=== PATIENT | male | born 1985 | race Caucasian/White ===

== ENCOUNTER 2019-07-14 17:29 | Emergency (ER) | payer MEDICAID ==
[~2019-07-14] VITALS: Ht 172.7 cm; Wt 63.9 kg
[2019-07-14 17:59] VITALS: BP 124/82
== END 2019-07-14 21:46 | disposition left against medical advice (07) ==
LOC: ER 17:30
DX: G43.909 Migraine, unspecified, not intractable, without status migrainosus (principal); Z53.21 Procedure and treatment not carried out due to patient leaving prior to being seen by health care provider

== ENCOUNTER 2020-02-14 22:05 | Emergency (ER) | payer MEDICAID ==
[~2020-02-14] VITALS: Ht 172.7 cm; Wt 68.0 kg
[2020-02-14] MEDS ORDERED: HYDROcodone/acetaminophen 5mg/325mg tablet PO ONE (22:35)
[2020-02-14] MEDS ORDERED: ketorolac trometh inj. 60 MG/2 ML VIAL IM ONE (22:35)
[2020-02-14] MEDS ORDERED: IBUP-1984 PO (22:35)
[2020-02-14] MEDS ORDERED: ACET-3067 PO (22:35)
[2020-02-14] MEDS ORDERED: diazepam 5mg tablet PO ONE (22:35)
[2020-02-14] MEDS ORDERED: CYCL-1 PO (22:35)
[2020-02-14 22:48] VITALS: BP 117/91
== END 2020-02-14 22:49 | disposition home or self-care (01) ==
LOC: ER 22:05
DX: M54.5 Low back pain (principal); F12.90 Cannabis use, unspecified, uncomplicated; F17.200 Nicotine dependence, unspecified, uncomplicated; Z79.899 Other long term (current) drug therapy
CPT/HCPCS: 96372; 99283; J1885

== ENCOUNTER 2020-03-19 14:01 | Emergency (ER) | payer MEDICAID ==
[~2020-03-19] VITALS: Ht 172.7 cm; Wt 77.3 kg
[~2020-03-19 14:01] MED LIST: CYCL-1 PO
--- NOTE | 2020-03-19 14:30 | NUR ---
PT WAS SCREENED/ASSESSED BY PROVIDER Arya STRICKLAND AND PT TO BE PLACED IN TENT 1.
[2020-03-19 15:02] LABS: BASOPHILS % (AUTO) 0.5 % (0-1); EOSINOPHILS # (AUTO) 0.1 X10'3 (0-0.9); EOSINOPHILS % (AUTO) 0.9 % (0-6); HEMATOCRIT 46.3 % (42.0-52.0); HEMOGLOBIN 15.3 g/dl (14.0-17.9); LYMPHOCYTES # (AUTO) 1.7 X10'3 (1.1-4.8); LYMPHOCYTES % (AUTO) 19.6 % (21-51); MEAN CORPUSCULAR HEMOGLOBIN 29.2 PG (27.0-31.0); MEAN CORPUSCULAR HGB CONC 32.9 g/dL (33.0-36.5); MEAN CORPUSCULAR VOLUME 88.5 FL (78-98); MEAN PLATELET VOLUME 8.3 FL (7.4-10.4); MONOCYTES # (AUTO) 0.6 X10'3 (0-0.9); MONOCYTES % (AUTO) 7.5 % (2-12); NEUTROPHILS # (AUTO) 6.1 X10'3 (1.8-7.7); NEUTROPHILS % (AUTO) 71.5 % (42-75); PLATELET COUNT 318 X10'3 (140-440); RED BLOOD COUNT 5.23 X10'6 (4.70-6.10); RED CELL DISTRIBUTION WIDTH 13.9 % (11.5-14.5); WHITE BLOOD COUNT 8.5 X10'3 (4.5-11.0)
[2020-03-19 15:15] LABS: ALANINE AMINOTRANSFERASE 13 U/L (12-78); ALBUMIN/GLOBULIN RATIO 1.1 (1.1-1.5); ALKALINE PHOSPHATASE 60 IU/L (46-116); ANION GAP 8 (8-16); ASPARTATE AMINO TRANSFERASE 10 U/L (10-37); BILIRUBIN,TOTAL 0.4 MG/DL (0.1-1.0); BLOOD UREA NITROGEN 10 MG/DL (7-18); BUN/CREATININE RATIO 11.5 (5.4-32.0); CHLORIDE 105 MMOL/L (99-107); CREATININE 0.87 MG/DL (0.60-1.10); GLUCOSE 106 MG/DL (70-104); POTASSIUM 3.8 MMOL/L (3.5-5.1); SODIUM 139 MMOL/L (135-145); TOTAL CARBON DIOXIDE 26.5 MMOL/L (24-32); TOTAL PROTEIN 7.6 G/DL (6.4-8.2); eGFR > 90 ML/MIN
[2020-03-19 15:45] VITALS: BP 113/83
[2020-03-19] MEDS ORDERED: morphine 4 MG/ML inj SYRINge IV ONE (16:00)
== END 2020-03-19 16:21 | disposition home or self-care (01) ==
LOC: ER 14:01
DX: S22.32XA Fracture of one rib, left side, initial encounter for closed fracture (principal); Z20.828 Contact with and (suspected) exposure to other viral communicable diseases; J06.9 Acute upper respiratory infection, unspecified; R11.2 Nausea with vomiting, unspecified; B97.89 Other viral agents as the cause of diseases classified elsewhere; F12.90 Cannabis use, unspecified, uncomplicated; Z79.899 Other long term (current) drug therapy; X58.XXXA Exposure to other specified factors, initial encounter; Y93.89 Activity, other specified; Y92.89 Other specified places as the place of occurrence of the external cause; Y99.8 Other external cause status
CPT/HCPCS: 36415; 71045; 80053; 84484; 85025; 87635; 93005; 99285

== ENCOUNTER 2020-06-20 03:56 | Inpatient (IN) | payer MEDICAID ==
[~2020-06-20] VITALS: Ht 175.3 cm; Wt 78.0 kg
[2020-06-20 04:29] LABS: BASOPHILS # (AUTO) 0.1 X10'3 (0-0.2); BASOPHILS % (AUTO) 0.7 % (0-1); EOSINOPHILS # (AUTO) 0.3 X10'3 (0-0.9); EOSINOPHILS % (AUTO) 2.8 % (0-6); HEMATOCRIT 46.5 % (42.0-52.0); HEMOGLOBIN 15.4 g/dl (14.0-17.9); LYMPHOCYTES # (AUTO) 2.5 X10'3 (1.1-4.8); LYMPHOCYTES % (AUTO) 25.4 % (21-51); MEAN CORPUSCULAR HEMOGLOBIN 28.6 PG (27.0-31.0); MEAN CORPUSCULAR HGB CONC 33.1 g/dL (33.0-36.5); MEAN CORPUSCULAR VOLUME 86.3 FL (78-98); MONOCYTES # (AUTO) 0.8 X10'3 (0-0.9); MONOCYTES % (AUTO) 8.1 % (2-12); NEUTROPHILS # (AUTO) 6.1 X10'3 (1.8-7.7); PLATELET COUNT 260 X10'3 (140-440); RED BLOOD COUNT 5.39 X10'6 (4.70-6.10); RED CELL DISTRIBUTION WIDTH 13.5 % (11.5-14.5); WHITE BLOOD COUNT 9.7 X10'3 (4.5-11.0)
[2020-06-20 04:44] LABS: ALANINE AMINOTRANSFERASE 18 U/L (12-78); ALBUMIN 3.9 G/DL (3.4-5.0); ALBUMIN/GLOBULIN RATIO 1.1 (1.1-1.5); ALKALINE PHOSPHATASE 68 IU/L (46-116); ANION GAP 3 (8-16); ASPARTATE AMINO TRANSFERASE 16 U/L (10-37); BILIRUBIN,TOTAL 0.2 MG/DL (0.1-1.0); BLOOD UREA NITROGEN 14 MG/DL (7-18); BUN/CREATININE RATIO 12.4 (5.4-32.0); CALCIUM 8.9 MG/DL (8.5-10.1); CHLORIDE 105 MMOL/L (99-107); CREATININE 1.13 MG/DL (0.60-1.10); GLUCOSE 117 MG/DL (70-104); POTASSIUM 4.1 MMOL/L (3.5-5.1); SODIUM 139 MMOL/L (135-145); TOTAL CARBON DIOXIDE 30.6 MMOL/L (24-32); TOTAL PROTEIN 7.3 G/DL (6.4-8.2); eGFR 73 ML/MIN
[2020-06-20] MEDS ORDERED: normal saline 1000ML IV soln IVB ONE ×2 (04:55→05:40)
[2020-06-20] MEDS ORDERED: LIDOcaine Viscous 15ml cup MM ONE (04:55)
[2020-06-20] MEDS ORDERED: pantoprazole 40 MG vial IV ONE (04:55)
[2020-06-20] MEDS ORDERED: mag hydrox/Alum hydrox/simeth 30ml oral suspension PO ONE (04:55)
[2020-06-20] MEDS ORDERED: ondansetron/PF 4mg/2ml inj IV ONE (04:55)
[2020-06-20 05:30] LABS: LIPASE 2757 U/L (73-393)
[2020-06-20] MEDS ORDERED: magnesium 2GM in 50ml NS 50 ML IV PRN (05:40)
[2020-06-20] MEDS ORDERED: morphine 4 MG/ML inj SYRINge IV ONE (05:40)
[2020-06-20] MEDS ORDERED: potassium Cl 20 mEq SR tablet PO PRN ×2 (05:40)
[2020-06-20] MEDS ORDERED: magnesium Cl slow-release 64mg tablet PO PRN (05:40)
[2020-06-20] MEDS ORDERED: magnesium 4gm in 100ml NS 100 ML IV PRN (05:40)
[2020-06-20] MEDS ORDERED: morphine 2 MG/ML inj. syringe IV PRN (05:40)
[2020-06-20] MEDS ORDERED: acetaminophen 325mg tablet PO PRN (05:40)
[2020-06-20] MEDS ORDERED: magnesium hydroxide 30ml (MOM) UD suspension PO PRN (05:40)
[2020-06-20] MEDS ORDERED: mag hydrox/Alum hydrox/simeth 30ml oral suspension PO PRN (05:40)
[2020-06-20] MEDS ORDERED: potassium CL 10mEq/100ml bag 100 ML IV PRN ×2 (05:40)
[2020-06-20] MEDS ORDERED: ondansetron/PF 4mg/2ml inj IV PRN (05:40)
[2020-06-20] MEDS ORDERED: LORazepam 2 mg/ml vial IV ONE (05:40)
[2020-06-20] MEDS: normal saline 1000ml 1,000 ML IV SCH ×2 (05:50→16:01)
--- NOTE | 2020-06-20 05:52 | NUR ---
SCANNER IS NOT WORKING IN ROOM 14 A WORK ORDER HAS BEEN SUBMITTED
[2020-06-20] MEDS ORDERED: iohexol 300mg/ml 100ml inj. ONE (05:55)
[2020-06-20] MEDS ORDERED: HYDR-3686 PO (06:00)
[2020-06-20] MEDS ORDERED: DIVA125T31 PO (06:00)
[2020-06-20] MEDS ORDERED: GABA-530 PO (06:00)
[2020-06-20] MEDS ORDERED: ZIPR80CA10 PO (06:00)
[2020-06-20] MEDS ORDERED: CLON0.1T2 PO (06:00)
[2020-06-20] MEDS ORDERED: LEVO75TA7 PO (06:00)
[2020-06-20 06:24] LABS: ETHANOL < 0.010 GM/DL (0.0-0.010)
[2020-06-20 08:00] VITALS: BP 151/96
[2020-06-20] MEDS: K and/or MAG REPLACEMENT MC SCH ×2 (08:00→19:04)
--- NOTE | 2020-06-20 08:00 | NUR ---
Patient in room [facility]. I have received report from LORIE Mello and had the opportunity to ask questions and assume patient care.
[2020-06-20] MEDS: divalproex sod 125mg tablet.DR PO SCH ×2 (08:53→20:15)
[2020-06-20] MEDS: gabapentin 100mg capsule PO SCH ×2 (08:54→14:28)
[2020-06-20] MEDS: ziprasidone 20mg capsule PO SCH ×2 (08:54→20:14)
[2020-06-20] MEDS: levoTHYROXINE 75mcg tablet PO SCH (08:54)
[2020-06-20] MEDS: HYDROmorphone 1 mg/ml syringe IV PRN ×2 (10:07→20:15)
[2020-06-20 11:00] VITALS: BP 117/74
[2020-06-20] MEDS ORDERED: ondansetron 4mg rapidly disintigrating tab PO PRN (11:30)
[2020-06-20 11:45] LABS: VALPROATE < 3.0 UG/ML (50-100)
--- NOTE | 2020-06-20 18:13 | NUR ---
Patient in room [facility]. I have received report from LORIE Lester and had the opportunity to ask questions and assume patient care.
--- NOTE | 2020-06-20 18:29 | NUR ---
Problems reprioritized. Patient report given, questions answered & plan of care reviewed with LORIE Zepeda.
[2020-06-20 18:30] VITALS: BP 120/83
[2020-06-20] MEDS: gabapentin 300mg capsule PO SCH (20:14)
[2020-06-20] MEDS: hydrOXYzine 25 MG tablet PO PRN (20:44)
[2020-06-21] VITALS: BP 115/80
[2020-06-21] MEDS: normal saline 1000ml 1,000 ML IV SCH ×2 (01:15→11:37)
[2020-06-21 05:37] LABS: BASOPHILS # (AUTO) 0.1 X10'3 (0-0.2); BASOPHILS % (AUTO) 0.9 % (0-1); EOSINOPHILS # (AUTO) 0.2 X10'3 (0-0.9); EOSINOPHILS % (AUTO) 1.9 % (0-6); HEMATOCRIT 43.7 % (42.0-52.0); HEMOGLOBIN 14.6 g/dl (14.0-17.9); LYMPHOCYTES # (AUTO) 1.7 X10'3 (1.1-4.8); LYMPHOCYTES % (AUTO) 21.8 % (21-51); MEAN CORPUSCULAR HEMOGLOBIN 29.1 PG (27.0-31.0); MEAN CORPUSCULAR HGB CONC 33.4 g/dL (33.0-36.5); MEAN CORPUSCULAR VOLUME 87.2 FL (78-98); MEAN PLATELET VOLUME 8.2 FL (7.4-10.4); MONOCYTES # (AUTO) 0.8 X10'3 (0-0.9); MONOCYTES % (AUTO) 10.1 % (2-12); NEUTROPHILS # (AUTO) 5.1 X10'3 (1.8-7.7); NEUTROPHILS % (AUTO) 65.3 % (42-75); PLATELET COUNT 235 X10'3 (140-440); RED BLOOD COUNT 5.01 X10'6 (4.70-6.10); WHITE BLOOD COUNT 7.8 X10'3 (4.5-11.0)
[2020-06-21 05:55] LABS: ALANINE AMINOTRANSFERASE 15 U/L (12-78); ALBUMIN 3.4 G/DL (3.4-5.0); ALKALINE PHOSPHATASE 58 IU/L (46-116); ANION GAP 8 (8-16); ASPARTATE AMINO TRANSFERASE 11 U/L (10-37); BILIRUBIN,TOTAL 0.6 MG/DL (0.1-1.0); BLOOD UREA NITROGEN 10 MG/DL (7-18); CALCIUM 8.3 MG/DL (8.5-10.1); CHLORIDE 106 MMOL/L (99-107); CREATININE 0.91 MG/DL (0.60-1.10); GLUCOSE 95 MG/DL (70-104); LIPASE 92 U/L (73-393); MAGNESIUM 1.9 MG/DL (1.5-2.4); POTASSIUM 3.7 MMOL/L (3.5-5.1); SODIUM 141 MMOL/L (135-145); TOTAL CARBON DIOXIDE 27.4 MMOL/L (24-32); TOTAL PROTEIN 6.7 G/DL (6.4-8.2); eGFR > 90 ML/MIN
--- NOTE | 2020-06-21 06:20 | NUR ---
Patient in room [facility]. I have received report from Katelyn MELO and had the opportunity to ask questions and assume patient care.
--- NOTE | 2020-06-21 06:35 | NUR ---
Problems reprioritized. Patient report given, questions answered & plan of care reviewed with Ila Paige RN.
[2020-06-21 07:00] VITALS: BP 127/85
[2020-06-21] MEDS: levoTHYROXINE 75mcg tablet PO SCH (07:30)
[2020-06-21] MEDS: hydrOXYzine 25 MG tablet PO PRN (07:30)
[2020-06-21] MEDS: divalproex sod 125mg tablet.DR PO SCH (07:31)
[2020-06-21] MEDS: gabapentin 300mg capsule PO SCH (07:31)
[2020-06-21] MEDS: ziprasidone 20mg capsule PO SCH (07:31)
[2020-06-21] MEDS: K and/or MAG REPLACEMENT MC SCH (08:00)
[2020-06-21 08:56] LABS: CHOL/HDL RATIO 4.3 (0.00-4.99); CHOLESTEROL 141 MG/DL (0-200); HDL CHOLESTEROL 33 MG/DL (35-60); LDL CHOLESTEROL 93 MG/DL (50-100); TRIGLYCERIDES 96 MG/DL (20-135)
--- NOTE | 2020-06-21 11:59 | NUR ---
Patient stable per MD orders. Discharge instructions and education provided. Patient did not have any new medications to be called in. Belongings gathered and patient dressed. IV discontinued with cannula intact. Patient ambulatory to lobby accompanied by RN. Wristbands cut off at time of discharge. Family members awaited patient in a private vehicle. The private vehicle was then seen driven off premises.
== END 2020-06-21 12:02 | disposition home or self-care (01) | DRG 282 ==
LOC: ER 03:57 → ED HOLD 05:37 → SUR 3N 07:30
PROVIDERS: ADMIT Family Medicine; ATTEND Internal Medicine
DX: K85.90 Acute pancreatitis without necrosis or infection, unspecified (principal); K21.9 Gastro-esophageal reflux disease without esophagitis; F31.9 Bipolar disorder, unspecified; F17.200 Nicotine dependence, unspecified, uncomplicated; F12.90 Cannabis use, unspecified, uncomplicated; F20.9 Schizophrenia, unspecified; F41.9 Anxiety disorder, unspecified; I25.2 Old myocardial infarction; Z79.899 Other long term (current) drug therapy
CPT/HCPCS: 36415; 71045; 74177; 76700; 80053; 80061; 80164; 80320; 83690; 83735; 83880; 84484; 85025; 87081; 93005; 99285; C9113; G0378; J1170; J2060; J2270; J2405; J7030; Q0177; Q9967

== ENCOUNTER 2021-01-05 18:35 | Emergency (ER) | payer MEDICAID ==
[~2021-01-05] VITALS: Ht 175.3 cm; Wt 75.6 kg
[~2021-01-05 18:35] MED LIST changes: +CLON0.1T2 PO; -CYCL-1 PO; +DIVA125T31 PO; +GABA-530 PO; +HYDR-3686 PO; +LEVO75TA7 PO; +ZIPR80CA10 PO
[2021-01-05] MEDS ORDERED: AMOX-422 PO (19:41)
[2021-01-05] MEDS ORDERED: IBUP-1984 PO ×2 (19:41→19:54)
[2021-01-05] MEDS ORDERED: AMOX-117 PO (19:54)
[2021-01-05 20:10] VITALS: BP 122/65
== END 2021-01-05 20:11 | disposition home or self-care (01) ==
LOC: ER 18:36
DX: K04.7 Periapical abscess without sinus (principal); I25.2 Old myocardial infarction; K21.9 Gastro-esophageal reflux disease without esophagitis; F12.90 Cannabis use, unspecified, uncomplicated; Z79.2 Long term (current) use of antibiotics; Z79.899 Other long term (current) drug therapy
CPT/HCPCS: 99283

== ENCOUNTER 2021-02-02 00:49 | Emergency (ER) | payer MEDICAID ==
[~2021-02-02] VITALS: Ht 175.3 cm; Wt 72.5 kg
[~2021-02-02 00:49] MED LIST changes: +IBUP-1984 PO
[2021-02-02] MEDS ORDERED: normal saline 1000ML IV soln IVB ONE (02:00)
[2021-02-02] MEDS ORDERED: ondansetron/PF 4mg/2ml inj IV ONE (02:00)
[2021-02-02] MEDS ORDERED: ketorolac trometh. 30mg/ml inj. IV ONE (02:00)
[2021-02-02 02:08] LABS: BASOPHILS % (AUTO) 0.4 % (0-1); EOSINOPHILS # (AUTO) 0.1 X10'3 (0-0.9); EOSINOPHILS % (AUTO) 0.7 % (0-6); HEMATOCRIT 45.3 % (42.0-52.0); LYMPHOCYTES # (AUTO) 1.4 X10'3 (1.1-4.8); LYMPHOCYTES % (AUTO) 14.8 % (21-51); MEAN CORPUSCULAR HEMOGLOBIN 27.8 PG (27.0-31.0); MEAN CORPUSCULAR HGB CONC 33.2 g/dL (33.0-36.5); MEAN CORPUSCULAR VOLUME 83.6 FL (78-98); MEAN PLATELET VOLUME 8.1 FL (7.4-10.4); MONOCYTES # (AUTO) 0.8 X10'3 (0-0.9); MONOCYTES % (AUTO) 7.9 % (2-12); NEUTROPHILS # (AUTO) 7.3 X10'3 (1.8-7.7); NEUTROPHILS % (AUTO) 76.2 % (42-75); PLATELET COUNT 315 X10'3 (140-440); RED BLOOD COUNT 5.42 X10'6 (4.70-6.10); RED CELL DISTRIBUTION WIDTH 15.1 % (11.5-14.5); WHITE BLOOD COUNT 9.6 X10'3 (4.5-11.0)
[2021-02-02 02:17] LABS: ALANINE AMINOTRANSFERASE 15 U/L (12-78); ALBUMIN 4.3 G/DL (3.4-5.0); ALBUMIN/GLOBULIN RATIO 1.2 (1.1-1.5); ALKALINE PHOSPHATASE 66 IU/L (46-116); ANION GAP 9 (8-16); ASPARTATE AMINO TRANSFERASE 9 U/L (10-37); BILIRUBIN,TOTAL 0.3 MG/DL (0.1-1.0); BLOOD UREA NITROGEN 13 MG/DL (7-18); BUN/CREATININE RATIO 12.5 (5.4-32.0); CALCIUM 9.2 MG/DL (8.5-10.1); CHLORIDE 104 MMOL/L (99-107); CLARITY,URINE CLEAR (Clear); COLOR,URINE AMBER (Yellow); CREATININE 1.04 MG/DL (0.60-1.10); GLUCOSE 111 MG/DL (70-104); GLUCOSE, URINE NEGATIVE (Neg); KETONES,URINE TRACE mg/dl (Neg); LEUKOCYTE ESTERASE ,URINE NEGATIVE (Neg); LIPASE 285 U/L (73-393); NITRITES, URINE NEGATIVE (Neg); OCCULT BLOOD,URINE NEGATIVE (Neg); POTASSIUM 4.4 MMOL/L (3.5-5.1); PROTEIN,URINE TRACE mg/dl (Neg); SODIUM 142 MMOL/L (135-145); TOTAL CARBON DIOXIDE 28.6 MMOL/L (24-32); TOTAL PROTEIN 7.9 G/DL (6.4-8.2); eGFR 81 ML/MIN
[2021-02-02 02:18] LABS: UA COLLECTION TYPE CLN CATCH MIDSTREAM
[2021-02-02 02:24] LABS: BACTERIA,URINE NONE SEEN /HPF (Neg); MUCUS STRANDS MANY /LPF (Neg); RBC,URINE NONE SEEN /HPF (0-2); SQUAMOUS EPITHELIAL CELL,UR FEW /LPF (FEW); WBC,URINE 0-4 /HPF (0-4)
[2021-02-02 02:31] VITALS: BP 118/84
[2021-02-02] MEDS ORDERED: ONDA4TAB6 PO (02:43)
[2021-02-02] MEDS ORDERED: sucralfate 1gm/10ml UD suspension PO STA (02:43)
[2021-02-02] MEDS ORDERED: mag hydrox/Alum hydrox/simeth 30ml oral suspension PO ONE (02:45)
[2021-02-02] MEDS ORDERED: LIDOcaine Viscous 15ml cup MM ONE (02:45)
[2021-02-02] MEDS ORDERED: haloperidol lactate 5mg/ml inj IM ONE (03:00)
== END 2021-02-02 03:50 | disposition home or self-care (01) ==
LOC: ER 00:50
DX: R11.2 Nausea with vomiting, unspecified (principal); R10.11 Right upper quadrant pain; I25.2 Old myocardial infarction; K21.9 Gastro-esophageal reflux disease without esophagitis; F31.9 Bipolar disorder, unspecified; F20.9 Schizophrenia, unspecified; F12.90 Cannabis use, unspecified, uncomplicated; Z79.899 Other long term (current) drug therapy
CPT/HCPCS: 36415; 80053; 81001; 83690; 85025; 96361; 96372; 96374; 96375; 99284; J1630; J1885; J2405; J7030

== ENCOUNTER 2021-04-04 15:31 | Emergency (ER) | payer MEDICAID ==
[~2021-04-04] VITALS: Ht 175.3 cm; Wt 71.5 kg
[~2021-04-04 15:31] MED LIST changes: -IBUP-1984 PO; +ONDA4TAB6 PO
--- NOTE | 2021-04-04 16:23 | NUR ---
pt to room, assumed care. pt sitting up in bed states, "I only need a work note for this weekend, I can't go to work bc I need to go to my psych. apt on Wednesday". Pt expressed he is tired from working and stressed.
[2021-04-04 17:16] VITALS: BP 126/72
== END 2021-04-04 17:23 | disposition home or self-care (01) ==
LOC: ER 15:31
DX: F43.9 Reaction to severe stress, unspecified (principal); I25.2 Old myocardial infarction; K21.9 Gastro-esophageal reflux disease without esophagitis; F31.9 Bipolar disorder, unspecified; F20.9 Schizophrenia, unspecified; F12.90 Cannabis use, unspecified, uncomplicated; Z79.899 Other long term (current) drug therapy
CPT/HCPCS: 99281; 99283

== ENCOUNTER 2021-11-15 19:13 | Emergency (ER) | payer MEDICAID ==
[~2021-11-15] VITALS: Ht 175.3 cm; Wt 160.0 kg
[2021-11-15 19:20] VITALS: BP 131/91
[2021-11-15] MEDS ORDERED: acetaminophen 325mg tablet PO ONE (19:55)
[2021-11-15 20:30] LABS: BASOPHILS % (AUTO) 0.4 % (0-1); EOSINOPHILS # (AUTO) 0.1 X10'3 (0-0.9); EOSINOPHILS % (AUTO) 1.4 % (0-6); LYMPHOCYTES # (AUTO) 1.3 X10'3 (1.1-4.8); LYMPHOCYTES % (AUTO) 13.5 % (21-51); MEAN CORPUSCULAR HEMOGLOBIN 28.4 PG (27.0-31.0); MEAN CORPUSCULAR HGB CONC 34.1 g/dL (33.0-36.5); MEAN CORPUSCULAR VOLUME 83.3 FL (78-98); MEAN PLATELET VOLUME 7.9 FL (7.4-10.4); MONOCYTES # (AUTO) 1.2 X10'3 (0-0.9); MONOCYTES % (AUTO) 13.1 % (2-12); NEUTROPHILS # (AUTO) 6.6 X10'3 (1.8-7.7); NEUTROPHILS % (AUTO) 71.6 % (42-75); PLATELET COUNT 257 X10'3 (140-440); RED BLOOD COUNT 5.28 X10'6 (4.70-6.10); RED CELL DISTRIBUTION WIDTH 15.3 % (11.5-14.5); WHITE BLOOD COUNT 9.3 X10'3 (4.5-11.0)
[2021-11-15 20:41] LABS: ALANINE AMINOTRANSFERASE 34 U/L (12-78); ALBUMIN/GLOBULIN RATIO 1.1 (1.1-1.5); ALKALINE PHOSPHATASE 77 IU/L (46-116); ANION GAP 9 (8-16); ASPARTATE AMINO TRANSFERASE 25 U/L (10-37); BILIRUBIN,TOTAL 0.3 MG/DL (0.1-1.0); BLOOD UREA NITROGEN 14 MG/DL (7-18); BUN/CREATININE RATIO 13.1 (5.4-32.0); CALCIUM 8.8 MG/DL (8.5-10.1); CHLORIDE 99 MMOL/L (99-107); CREATININE 1.07 MG/DL (0.60-1.10); GLUCOSE 98 MG/DL (70-104); SODIUM 139 MMOL/L (135-145); TOTAL CARBON DIOXIDE 30.7 MMOL/L (24-32); TOTAL PROTEIN 7.7 G/DL (6.4-8.2); eGFR 78 ML/MIN
[2021-11-15] MEDS ORDERED: ACET-1025 PO (20:53)
[2021-11-15] MEDS ORDERED: ALBU8HFA PO (20:53)
== END 2021-11-15 21:13 | disposition home or self-care (01) ==
LOC: ER 19:14
DX: B34.9 Viral infection, unspecified (principal); Z20.822 Contact with and (suspected) exposure to COVID-19; R50.9 Fever, unspecified; R06.02 Shortness of breath; R05.9 Cough, unspecified; R09.89 Other specified symptoms and signs involving the circulatory and respiratory systems; K21.9 Gastro-esophageal reflux disease without esophagitis; F31.9 Bipolar disorder, unspecified; F20.9 Schizophrenia, unspecified; F17.200 Nicotine dependence, unspecified, uncomplicated; F12.90 Cannabis use, unspecified, uncomplicated; Z79.899 Other long term (current) drug therapy
CPT/HCPCS: 36415; 71045; 80053; 85025; 87502; 87503; 87635; 99284; C9803

== ENCOUNTER 2022-05-09 20:10 | Emergency (ER) | payer MEDICAID ==
[~2022-05-09] VITALS: Ht 175.3 cm; Wt 81.5 kg
[2022-05-09 20:17] VITALS: BP 117/76
== END 2022-05-09 21:17 | disposition home or self-care (01) ==
LOC: ER 20:11
DX: R11.2 Nausea with vomiting, unspecified (principal); R10.9 Unspecified abdominal pain; F12.10 Cannabis abuse, uncomplicated; K21.9 Gastro-esophageal reflux disease without esophagitis; F30.9 Manic episode, unspecified; F20.9 Schizophrenia, unspecified
CPT/HCPCS: 99281